=== PATIENT | male | born 1975 | race Two or more races ===

== ENCOUNTER 2023-10-30 16:55 | Emergency (ER) | payer OTHER ==
[~2023-10-30] VITALS: Ht 165.1 cm; Wt 72.0 kg
[2023-10-30] MEDS ORDERED: fentaNYL CITRATE 5 ML ONE (17:03)
[2023-10-30] MEDS ORDERED: ONDANSETRON HCL 4 MG/2 ML VIAL ONE (17:03)
[2023-10-30] MEDS ORDERED: SODIUM CHLORIDE 0.9% 1,000 ML IV ONE ×2 (17:15→22:00)
[2023-10-30] MEDS ORDERED: ONDANSETRON HCL 4 MG/2 ML VIAL IV ONE (17:15)
[2023-10-30 17:30] LABS: Basophils # (auto) 0.1 10 ^3/uL (0-0.2); Basophils % (auto) 0.5 % (0.0-2.0); Eosinophils # (auto) 0.5 10 ^3/uL (0-0.8); Eosinophils % (auto) 4.1 % (0.0-7.0); Hematocrit 40.9 % (41.0-53.0); Hemoglobin 13.3 g/dL (13.5-17.5); Lymphocytes % (auto) 34.9 % (10.0-50.0); Mean Corpuscular Hgb Conc. 32.6 g/dL (32.0-36.0); Mean Corpuscular Volume 91.9 fL (80.0-100.0); Monocytes # (auto) 0.8 10 ^3/uL (0-1.3); Monocytes % (auto) 6.6 % (0.0-12.0); Neutrophils # (auto) 6.2 10 ^3/uL (1.6-8.6); Neutrophils % (auto) 53.9 % (37.0-80.0); Nucleated Red Blood Cells % 0.1 %; Red Blood Cells 4.45 10^6/uL (4.5-5.90); Red Cell Distribution Width 13.2 % (11.8-14.3); White Blood Cell 11.5 10^3/uL (4.4-10.8)
[2023-10-30] MEDS ORDERED: fentaNYL CITRATE 100 MCG/2 ML VL IV ONE ×3 (17:30→22:30)
[2023-10-30] MEDS ORDERED: IOHEXOL 350 MG/ML 100ML IJ ONE (17:31)
[2023-10-30 17:43] LABS: INR 1.14 (0.9-1.15); Partial Thromboplastin Time 22.5 SEC (24.5-34.5); Prothrombin Time 11.9 sec (9.3-11.8)
[2023-10-30 17:56] VITALS: PULSE 90; RESP 20; O2SAT 98
[2023-10-30 17:58] LABS: Alanine Aminotransferase 25 U/L (7-40); Albumin 4.4 g/dL (3.2-4.8); Alkaline Phosphatase 54 U/L (46-116); Anion Gap 10 (5-15); Aspartate Aminotransferase 20 U/L (13-40); BUN/Creatinine Ratio 11.1 (10.0-20.0); Blood Alcohol 5.8 mg/dL (<10); Blood Urea Nitrogen 10 mg/dL (9-23); Carbon Dioxide 21 mmol/L (20-30); Chloride 105 mmol/L (98-107); Glucose 179 mg/dL (74-106); Potassium 3.2 mmol/L (3.5-5.1); Sodium 136 mmol/L (136-145)
[2023-10-30 17:59] LABS: Bilirubin, Total 0.6 mg/dL (0.2-1.0); Total Protein 6.8 g/dL (5.7-8.2)
[2023-10-30] MEDS ORDERED: cefTRIAXone 1GM/50ML D5W 50 ML IV ONE ×2 (19:15→19:50)
[2023-10-30 20:10] VITALS: PULSE 99; RESP 13; O2SAT 98
[2023-10-30 22:51] LABS: Urine Bacteria NONE SEEN /hpf (None Seen); Urine Blood Negative /uL (Negative); Urine Clarity Clear (Clear); Urine Color Yellow (Yellow); Urine Protein, UAD TRACE (Negative); Urine Urobilinogen Normal (Negative); Urine WBC <1 /hpf (0 - 3)
[2023-10-30 23:01] LABS: Urine Specific Gravity > 1.050 (1.001-1.035)
[2023-10-31 01:12] VITALS: TEMP 99; O2SAT 97
[2023-10-31] MEDS ORDERED: HYDROmorphone HCL 2 MG/ML VL/or syr IV ONE (01:30)
[2023-10-31] MEDS ORDERED: ONDANSETRON HCL 4 MG/2 ML VIAL IV ONE (01:30)
[2023-10-31 01:32] VITALS: BP 127/76; PULSE 98; RESP 13
== END 2023-10-31 01:32 | disposition short-term general hospital (02) ==
LOC: ER 16:55
DX: S82.302A Unspecified fracture of lower end of left tibia, initial encounter for closed fracture (principal); S82.832A Other fracture of upper and lower end of left fibula, initial encounter for closed fracture; R51.9 Headache, unspecified; M54.2 Cervicalgia; R07.89 Other chest pain; V86.55XA Driver of 3- or 4- wheeled all-terrain vehicle (ATV) injured in nontraffic accident, initial encounter; Y93.89 Activity, other specified; Y92.89 Other specified places as the place of occurrence of the external cause; Y99.8 Other external cause status
CPT/HCPCS: 29515; 36415; 70450; 71045; 72125; 73590; 73620; 73706; 80053; 80320; 81001; 82962; 85025; 85610; 85730; 86850; 86900; 86901; 93005; 96361; 96365; 96375; 96376; 99285; J0696; J1170; J2405; J3010; J7030; Q9967